=== PATIENT | female | born 1985 | race Two or more races ===

== ENCOUNTER 2017-06-30 18:15 | Emergency (ER) | payer SELFPAY ==
[2017-06-30 18:20] VITALS: BP 129/59; PULSE 127; TEMP 98; BMI 21.2
[2017-06-30] MEDS ORDERED: DIPHTH,PERTUSS(ACELL),TET 0.5 ML DISP.SYRIN IM ONE (19:34)
[2017-06-30] MEDS ORDERED: HIV POST EXPOSURE PROPHYLAXIS KIT NR ONE (19:45)
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
[2017-06-30] MEDS ORDERED: HIV POST EXPOSURE PROPHYLAXIS KIT PO ONE (19:48)
[2017-06-30 20:55] LABS: BASOPHIL 0.1 % (0-2.0); EOSINOPHIL 0.1 % (0-4.5); MCH 27.9 pg (25.7-33.7); MCHC 32.8 g/dl (32.0-36.0); MEAN CELL VOLUME 85.1 fl (80-96); MEAN PLT VOLUME 8.8 fl (7.5-11.1); NEUTROPHILS 83.3 % (42.8-82.8); PLATELET COUNT 300 K/MM3 (134-434); RDW 19.1 % (11.6-15.6); WHITE BLOOD COUNT 15.8 K/mm3 (4.0-10.0)
[2017-06-30 21:11] LABS: ANION GAP 8 (8-16); BILIRUBIN,TOTAL 0.7 mg/dL (0.2-1.0); CALCIUM 9.3 mg/dL (8.5-10.1); CHOLESTEROL 186 mg/dL (50-200); CO2 26 mmol/L (21-32); GLUCOSE,RANDOM 94 mg/dL (74-106); LDH 144 U/L (84-246); PHOSPHOROUS 2.4 mg/dL (2.5-4.9); SGOT/AST 14 U/L (15-37); SGPT/ALT 20 U/L (12-78); TOT PROT 7.3 g/dl (6.4-8.2); URIC ACID 8.7 mg/dL (2.6-7.2)
[2017-06-30 21:13] LABS: ALK PHOS 77 U/L (45-117)
[2017-06-30 21:22] LABS: HIV 1 & 2 AB NEGATIVE; HIV 1 AGp24 NEGATIVE
[2017-07-02 10:08] LABS: HEP B SURFACE AB Reactive (.)
== END 2017-06-30 22:57 | disposition home or self-care (01) ==
LOC: JERFT 18:15
PROC: 3E0234Z Introduction of Serum, Toxoid and Vaccine into Muscle, Percutaneous Approach (ICD-10-PCS; principal; 2017-06-30)
DX: S41.052A Open bite of left shoulder, initial encounter (principal); Y04.1XXA Assault by human bite, initial encounter; Y93.89 Activity, other specified; Y92.89 Other specified places as the place of occurrence of the external cause; F17.210 Nicotine dependence, cigarettes, uncomplicated
CPT/HCPCS: 36415; 80053; 82465; 82977; 83615; 84100; 84478; 84550; 84703; 85025; 86704; 86706; 87340; 87389; 90715; 99281-25

== ENCOUNTER 2017-08-30 15:29 | Emergency (ER) | payer SELFPAY ==
[2017-08-30 15:47] VITALS: BP 94/54; PULSE 99; TEMP 98; BMI 21.2
--- NOTE | 2017-08-30 16:13 | PDOC ---
History of Present Illness - General Chief Complaint: Pain, Acute Stated Complaint: PAIN Time Seen by Provider: 08/30/17 16:11 History Source: Patient Exam Limitations: No Limitations - History of Present Illness Initial Comments: 08/30/17 16:13 Patient is an otherwise healthy 32 year old female presenting with one day of abdominal pain with associated headache, nausea and weakness. Patient woke this morning with 10/10 lower abdominal pain that was primarily located in the RLQ and radiated to the back and down her leg. Pain was crampy and unrelieved with Tylenol. Patient started her menstrual cycle today but claims she never has cramps this bad. Endorses Anorexia and diarrhea 2 days ago. Denies fever, chills , vomiting, burning on urination and vaginal discharge. Patient has no history of sexually transmitted infections, Is sexually active with one partner. Denies being . Past History - Past Medical History Allergies/Adverse Reactions: Allergies Allergy/AdvReac Type Severity Reaction Status Date / Time No Known Allergies Allergy Verified 08/30/17 15:44 Home Medications: Ambulatory Orders Raltegravir [Isentress -] 400 mg PO BID #46 tab 06/30/17 Other medical history: DENIES. - Suicide/Smoking/Psychosocial Hx Smoking History: Current every day smoker Have you smoked in the past 12 months: Yes Number of Cigarettes Smoked Daily: 10 Information on smoking cessation initiated: No Review of Systems - Review of Systems Able to Perform ROS?: Yes Comments:: GEN: Denies fever, chills, recent illness HEENTM: Denies sore throat, neck pain, changes in vision, changes in hearing, ear pain, tinnitus Respiratory: Denies cough, wheezing, shortness of breath Cardiac: Denies chest pain, palpitations, lightheadedness, diaphoresis ABD/GI: +abdominal pain, +nausea, +diarrhea (2 days ago); Denies vomiting, constipation : Denies dysuria, burning on urination, increased frequency of urination Musculoskeletal: Denies pain and swelling of muscles and joints Integumentary: Denies rashes, bruises Neurological: +MAGALLANES, +weakness; Denies dizziness, loss of consciousness, tingling , numbness Hematologic/Lymphatic: Denies anemia, easy bleeding, history of blood clots. All Other Systems Reviewed and Negative Is the patient limited Gambian proficient: No *Physical Exam - Vital Signs Last Vital Signs Temp Pulse Resp BP Pulse Ox 98 F 99 H 19 94/54 98 08/30/17 15:44 08/30/17 15:44 08/30/17 15:44 08/30/17 15:44 08/30/17 15:44 - Physical Exam Comments: GENERAL: AAOx3, nourished and generally well appearing, NAD HEAD: NCAT EYES: PERRLA, EOMI, sclera anicteric, conjunctiva clear ENT: Auricles normal inspection, hearing grossly normal, nares patent, no nasal discharge, no congestion, oropharynx clear without exudates, MMM NECK: supple, normal ROM, no LAD, no JVD, no masses RESP: speaking in full sentences, lungs CTAB, symmetrical chest expansion, no respiratory distress HEART: RRR, normal S1-S2, no MRG, peripheral pulses normal and equal bilaterally ABDOMEN: soft, non-distended, nlBSx4, mild RLQ tenderness to palpation, no guarding, no rebound, no masses, (-)McBurney's sign, (-)Rovsing's sign, (-) psoas sign, (-)obturator sign, (-)Heel tap sign PELVIC: external exam wnl, cervical os closed, right adnexal tenderness, normal size ovaries, mild blood in the vaginal vault, no cervical motion tenderness, non-friable cervical tissue MUSCULOSKELETAL: no CVA Tenderness EXTREMITIES: normal inspection, moving all extremities, full ROM, strength 5/5, sensation grossly intact NEUROLOGICAL: CN II-XII grossly intact, normal speech, normal gait, no focal sensorimotor deficits SKIN: warm, dry, normal turgor, no rashes or lesions noted. ED Treatment Course - LABORATORY CBC & Chemistry Diagram: 08/30/17 16:40 08/30/17 19:06 Medical Decision Making - Medical Decision Making 08/30/17 16:34 32 year old with crampy 10/10 abdominal pain on the first day of her menstrual cycle. DDx includes but is not limited to ectopic , ovarian torsion, TOA, PID , UTI, menstrual cramps, ovarian cyst, nephrolithiasis Pain control CBC/CMP UA HCG Pelvic exam Transvaginal US +/- Abdominal CT CBC WBC 9.8 K/mm3 (4.0-10.0) D 08/30/17 16:40 RBC 4.58 M/mm3 (3.60-5.2) 08/30/17 16:40 Hgb 12.7 GM/dL (10.7-15.3) 08/30/17 16:40 Hct 38.6 % (32.4-45.2) 08/30/17 16:40 MCV 84.3 fl (80-96) 08/30/17 16:40 MCH 27.8 pg (25.7-33.7) 08/30/17 16:40 MCHC 33.0 g/dl (32.0-36.0) 08/30/17 16:40 RDW 17.7 % (11.6-15.6) H 08/30/17 16:40 Plt Count 378 K/MM3 (134-434) D 08/30/17 16:40 MPV 8.2 fl (7.5-11.1) 08/30/17 16:40 Neutrophils % 72.8 % (42.8-82.8) 08/30/17 16:40 Lymphocytes % 19.0 % (8-40) D 08/30/17 16:40 Monocytes % 7.2 % (3.8-10.2) 08/30/17 16:40 Eosinophils % 0.4 % (0-4.5) D 08/30/17 16:40 Basophils % 0.6 % (0-2.0) D 08/30/17 16:40 reassuring wbc, grossly within normal limits Urine Test Results Urine Color Yellow 08/30/17 16:40 Urine Appearance Slcloudy 08/30/17 16:40 Urine pH 8.0 (5.0-8.0) 08/30/17 16:40 Urine Protein 1+ (NEGATIVE) H 08/30/17 16:40 Urine Glucose (UA) Negative (NEGATIVE) 08/30/17 16:40 Urine Ketones Negative (NEGATIVE) 08/30/17 16:40 Urine Blood 2+ (NEGATIVE) H 08/30/17 16:40 Urine Nitrite Negative (NEGATIVE) 08/30/17 16:40 Urine Bilirubin Negative (NEGATIVE) 08/30/17 16:40 negative for UTI, Positive for blood/myoglobin (-)HCG 08/30/17 19:02 Patient states pain is not well relieved with toradol, now endorses 06/21 pain pelvic exam was performed with manager drugValentina Olson in the room There was blood in the vaginal vault Cervical oz was closed, no cervical motion tenderness + right adnexal tenderness, no left adnexal tenderness Transvaginal US ordered Patient care signed out to Dr. Flannery and the night team. *DC/Admit/Observation/Transfer Diagnosis at time of Disposition: Pelvic pain - Discharge Dispostion Disposition: HOME Condition at time of disposition: Stable - Referrals Referrals: Rajat Smith MD [Staff Physician] - - Patient Instructions Printed Discharge Instructions: DI for Pelvic Pain - Post Discharge Activity Forms/Work/School Notes: Back to Work
--- NOTE | 2017-08-30 16:20 | PDOC ---
Attending Attestation - HPI HPI: 08/30/17 17:40 32 y/o F with no PMHx presents to the ED with constant RLQ cramping pain today. Patient states she usually does not have menstrual cramps and the pain was too severe. She reports associated nausea, but denies vomiting. She reports she began her menstrual period after arrival to the ED. She denies fever, chills, diarrhea, constipation. Denies vaginal discharge. Denies urinary complaints. Denies rashes, bumps, bruises. Denies chest pain, SOB. She is a current everyday cigarette smoker. A complete review of 10 out of 10 review of systems is taken and is negative apart from what is previously mentioned below and in the HPI. - Physicial Exam PE: 08/30/17 17:53 Vitals: Triage Vital signs reviewed General Appearance: no acute distress, well nourished well developed Head: Atraumatic Eyes: Pupils equal reactive round, extraocular movement intact Neck: Supple; No Nucal rigidity Chest Wall: Nontender Cardiac: Regular rate and rhythm, no murmurs, no rubs, no gallops Lungs: Clear to auscultation bilateral, good air movement bilaterally Abdomen: Soft, non distended, normal bowel sounds, mild RLQ tenderness Extremities: Full range of motion to all extremities, no cyanosis, clubbing, or edema Skin: Warm and dry, no rashes or lesions, no rash, no petechiae Neuro: AOX3; Cranial Nerves 2-12 grossly intact, Strength intact to all extremities, Sensation intact to all extremities Psych: normal mood, normal affect - Medical Decision Making 08/30/17 17:44 Documentation prepared by Nidia Damon, acting as medical pathologist for Greg Dubois MD. <Nidia Damon - Last Filed: 08/30/17 17:53> - Resident Resident Name: Jeff Toussaint - ED Attending Attestation I have performed the following: I have examined & evaluated the patient, The case was reviewed & discussed with the resident, I agree w/resident's findings & plan, Exceptions are as noted - Medical Decision Making 08/30/17 19:11 Well-appearing complaining of mild right lower abdominal/adnexal pain On vaginal exam patient with mild adnexal discomfort but also with mild right lower quadrant and on abdominal examination. We'll check labs ultrasound reassess Dr. Benedict to F/U labs U/S and repeat abdominal exam <Greg Dubois - Last Filed: 08/30/17 19:11>
[2017-08-30] MEDS ORDERED: SODIUM CHLORIDE 1,000 ML IV STA (16:38)
[2017-08-30] MEDS ORDERED: KETOROLAC TROMETHAMINE 30 MG/1 ML VIAL IVPUSH ONE (16:38)
[2017-08-30] MEDS ORDERED: KETOROLAC TROMETHAMINE 30 MG/1 ML VIAL ONE (16:48)
[2017-08-30 16:55] LABS: BASOPHIL 0.6 % (0-2.0); EOSINOPHIL 0.4 % (0-4.5); MCH 27.8 pg (25.7-33.7); MEAN CELL VOLUME 84.3 fl (80-96); MEAN PLT VOLUME 8.2 fl (7.5-11.1); NEUTROPHILS 72.8 % (42.8-82.8); PLATELET COUNT 378 K/MM3 (134-434); RDW 17.7 % (11.6-15.6); WHITE BLOOD COUNT 9.8 K/mm3 (4.0-10.0)
[2017-08-30 17:09] LABS: URINE APPEARANCE SLCLOUDY; URINE BILIRUBIN NEGATIVE (NEGATIVE); URINE BLOOD 2+ (NEGATIVE); URINE COLOR YELLOW; URINE GLUCOSE (UA) NEGATIVE (NEGATIVE); URINE KETONE NEGATIVE (NEGATIVE); URINE NITRITE NEGATIVE (NEGATIVE); URINE UROBILINOGEN NEGATIVE mg/dL (0.2-1.0)
[2017-08-30 17:10] LABS: URINE PROTEIN 1+ (NEGATIVE)
[2017-08-30 17:53] LABS: URINE MUCUS RARE; URINE RBC 5 /hpf (0-3); URINE WBC 2 /hpf (3-5)
--- NOTE | 2017-08-30 19:42 | PDOC ---
*Physical Exam - Vital Signs Last Vital Signs Temp Pulse Resp BP Pulse Ox 98 F 99 H 19 94/54 98 08/30/17 15:44 08/30/17 15:44 08/30/17 15:44 08/30/17 15:44 08/30/17 15:44 ED Treatment Course - LABORATORY CBC & Chemistry Diagram: 08/30/17 16:40 08/30/17 19:06 - ADDITIONAL ORDERS Additional order review: Laboratory Results 08/30/17 08/30/17 08/30/17 17:20 16:50 16:40 Sodium Cancelled Cancelled Potassium Cancelled Cancelled Chloride Cancelled Cancelled Carbon Dioxide Cancelled Cancelled Anion Gap Cancelled Cancelled BUN Cancelled Cancelled Creatinine Cancelled Cancelled Creat Clearance w eGFR Cancelled Cancelled Random Glucose Cancelled Cancelled Calcium Cancelled Cancelled Total Bilirubin Cancelled Cancelled AST Cancelled Cancelled ALT Cancelled Cancelled Alkaline Phosphatase Cancelled Cancelled Total Protein Cancelled Cancelled Albumin Cancelled Cancelled Urine Color Yellow Urine Appearance Slcloudy Urine pH 8.0 Urine Protein 1+ H Urine Glucose (UA) Negative Urine Ketones Negative Urine Blood 2+ H Urine Nitrite Negative Urine Bilirubin Negative Urine Urobilinogen Negative Urine RBC 5 Urine WBC 2 Ur Epithelial Cells Few Urine Mucus Rare Urine HCG, Qual 08/30/17 16:40 Sodium Potassium Chloride Carbon Dioxide Anion Gap BUN Creatinine Creat Clearance w eGFR Random Glucose Calcium Total Bilirubin AST ALT Alkaline Phosphatase Total Protein Albumin Urine Color Urine Appearance Urine pH Urine Protein Urine Glucose (UA) Urine Ketones Urine Blood Urine Nitrite Urine Bilirubin Urine Urobilinogen Urine RBC Urine WBC Ur Epithelial Cells Urine Mucus Urine HCG, Qual Negative 08/30/17 16:40 RBC 4.58 MCV 84.3 MCHC 33.0 RDW 17.7 H MPV 8.2 Neutrophils % 72.8 Lymphocytes % 19.0 D Monocytes % 7.2 Eosinophils % 0.4 D Basophils % 0.6 D - Medications Given in the ED: ED Medications Discontinued Medications Generic Name Dose Route Start Last Admin Trade Name Freq PRN Reason Stop Dose Admin Sodium Chloride 1,000 mls @ 1,000 mls/hr 08/30/17 16:38 08/30/17 17:05 Normal Saline - IV 08/30/17 17:37 1,000 mls/hr ASDIR STA Administration Ketorolac Tromethamine 30 mg 08/30/17 16:38 08/30/17 17:05 Toradol Injection - IVPUSH 08/30/17 16:39 30 mg ONCE ONE Administration Medical Decision Making - Medical Decision Making 08/30/17 19:29 The patient was signed out to me by Dr. Toussaint, day team. Patient is a 32F with no PMH who presents to the ED with RLQ pain. Pending TV U/ S. Will reassess when reading returns. 08/30/17 20:04 The patient is in a wheelchair in the hallway. On reassessment, the patient is not complaining of any pain and has no tenderness in her abdomen. Pending U/S read. Patient is NPO until ovarian torsion is ruled out. 08/30/17 21:25 TV U/S negative for TOA and ovarian torsion. Patient is ready for d/c. *DC/Admit/Observation/Transfer Diagnosis at time of Disposition: Pelvic pain - Discharge Dispostion Disposition: HOME Condition at time of disposition: Stable - Referrals Referrals: Rajat Smith MD [Staff Physician] - - Patient Instructions Printed Discharge Instructions: DI for Pelvic Pain - Post Discharge Activity Forms/Work/School Notes: Back to Work
[2017-08-30 19:54] LABS: ALBUMIN 3.6 g/dl (3.4-5.0); ANION GAP 6 (8-16); BILIRUBIN,TOTAL 0.4 mg/dL (0.2-1.0); CALCIUM 8.2 mg/dL (8.5-10.1); CO2 25 mmol/L (21-32); CREATININE 0.8 mg/dL (0.55-1.02); GLUCOSE,RANDOM 93 mg/dL (74-106); SGOT/AST 38 U/L (15-37); SGPT/ALT 38 U/L (12-78); TOT PROT 6.9 g/dl (6.4-8.2)
[2017-08-30 19:55] LABS: ALK PHOS 71 U/L (45-117)
--- NOTE | 2017-08-30 20:53 | PDOC ---
*Physical Exam - Vital Signs Last Vital Signs Temp Pulse Resp BP Pulse Ox 98 F 99 H 19 94/54 98 08/30/17 15:44 08/30/17 15:44 08/30/17 15:44 08/30/17 15:44 08/30/17 15:44 ED Treatment Course - LABORATORY CBC & Chemistry Diagram: 08/30/17 16:40 08/30/17 19:06 - ADDITIONAL ORDERS Additional order review: Laboratory Results 08/30/17 08/30/17 08/30/17 19:06 17:20 16:50 Sodium 138 Cancelled Cancelled Potassium 4.4 Cancelled Cancelled Chloride 107 Cancelled Cancelled Carbon Dioxide 25 Cancelled Cancelled Anion Gap 6 L Cancelled Cancelled BUN 14 Cancelled Cancelled Creatinine 0.8 Cancelled Cancelled Creat Clearance w eGFR > 60 Cancelled Cancelled Random Glucose 93 Cancelled Cancelled Calcium 8.2 L Cancelled Cancelled Total Bilirubin 0.4 D Cancelled Cancelled AST 38 H D Cancelled Cancelled ALT 38 D Cancelled Cancelled Alkaline Phosphatase 71 Cancelled Cancelled Total Protein 6.9 Cancelled Cancelled Albumin 3.6 Cancelled Cancelled Urine Color Urine Appearance Urine pH Urine Protein Urine Glucose (UA) Urine Ketones Urine Blood Urine Nitrite Urine Bilirubin Urine Urobilinogen Urine RBC Urine WBC Ur Epithelial Cells Urine Mucus Urine HCG, Qual 08/30/17 08/30/17 16:40 16:40 Sodium Potassium Chloride Carbon Dioxide Anion Gap BUN Creatinine Creat Clearance w eGFR Random Glucose Calcium Total Bilirubin AST ALT Alkaline Phosphatase Total Protein Albumin Urine Color Yellow Urine Appearance Slcloudy Urine pH 8.0 Urine Protein 1+ H Urine Glucose (UA) Negative Urine Ketones Negative Urine Blood 2+ H Urine Nitrite Negative Urine Bilirubin Negative Urine Urobilinogen Negative Urine RBC 5 Urine WBC 2 Ur Epithelial Cells Few Urine Mucus Rare Urine HCG, Qual Negative 08/30/17 16:40 RBC 4.58 MCV 84.3 MCHC 33.0 RDW 17.7 H MPV 8.2 Neutrophils % 72.8 Lymphocytes % 19.0 D Monocytes % 7.2 Eosinophils % 0.4 D Basophils % 0.6 D - Medications Given in the ED: ED Medications Discontinued Medications Generic Name Dose Route Start Last Admin Trade Name Freq PRN Reason Stop Dose Admin Sodium Chloride 1,000 mls @ 1,000 mls/hr 08/30/17 16:38 08/30/17 17:05 Normal Saline - IV 08/30/17 17:37 1,000 mls/hr ASDIR STA Administration Ketorolac Tromethamine 30 mg 08/30/17 16:38 08/30/17 17:05 Toradol Injection - IVPUSH 08/30/17 16:39 30 mg ONCE ONE Administration Medical Decision Making - Medical Decision Making 08/30/17 20:52 all studies and labs negative. Pt to follow up with [facility] as needed. *DC/Admit/Observation/Transfer Diagnosis at time of Disposition: Pelvic pain - Discharge Dispostion Disposition: HOME Condition at time of disposition: Stable Admit: No - Referrals Referrals: Rajat Smith MD [Staff Physician] - - Patient Instructions Printed Discharge Instructions: DI for Pelvic Pain - Post Discharge Activity Forms/Work/School Notes: Back to Work
[2017-08-30 21:13] LABS: URINE LEUK ESTERASE Negative (NEGATIVE)
== END 2017-08-30 21:32 | disposition home or self-care (01) ==
LOC: JER 15:29
PROC: 3E0333Z Introduction of Anti-inflammatory into Peripheral Vein, Percutaneous Approach (ICD-10-PCS; principal; 2017-08-30)
DX: R10.2 Pelvic and perineal pain (principal)
CPT/HCPCS: 36415; 76830-TC; 80053; 81003; 81015; 84703; 85025; 87491; 87591; 99283-25